=== PATIENT | female | born 1985 | race American Indian/Alaskan Native ===

== ENCOUNTER 2021-05-30 23:26 | Emergency (ER) | payer MEDICARE ==
--- NOTE | 2021-05-31 02:31 | Emergency Department Report ---
ED Eye Problem HPI - General Chief complaint: Eye Problems Stated complaint: LEFT EYE IRRITATION Source: patient Mode of arrival: Ambulatory Limitations: No Limitations - History of Present Illness Initial comments: Patient is a 35-year-old -[place] female with past medical history of morbid obesity who presents to the ED with complaint of acute onset persistent bilateral eye pain with thick purulent discharge, matting and mild conjunctival erythema for the last 2 days. Patient states that the pain is sharp, constant and burning. Patient states that no one else at home or at work has had similar symptoms. Patient denies traumatic injury, headache, fever, chills, vision loss, nasal and sinus congestion, back pain, sore throat, neck pain, dizziness, or cough. MD chief complaint: eye pain (Bilateral eye pain), eye redness (Bilateral eye redness with discharge), vision change (Bilateral eye discharge) -: Sudden, days(s) (2) Onset Description: sudden Location: both eyes Place: home If Injury: none Eye Symptoms: redness, pain, discharge Severity: severe Severity scale (0 -10): 7 If Pain, Quality: burning, aching Consistency: constant Context: recent uri Associated Symptoms: none. denies: headache, neck pain, nausea/vomiting, cough, rhinorrhea, fever, shortness of breath Treatments Prior to Arrival: none - Related Data Previous Rx's Medication Instructions Recorded Last Taken Type Ibuprofen [Motrin] 800 mg PO Q8HR PRN #24 tablet 05/31/21 Unknown Rx Tobramycin 0.3% [Tobrex] 1 drop OP Q4HR #5 ml 05/31/21 Unknown Rx Allergies Allergy/AdvReac Type Severity Reaction Status Date / Time No Known Allergies Allergy Unverified 05/30/21 23:47 ED Review of Systems ROS: Stated complaint: LEFT EYE IRRITATION Other details as noted in HPI Constitutional: denies: chills, fever Eyes: eye pain (Bilateral eye pain), eye discharge (Bilateral purulent discharge), other (Bilateral mild conjunctival erythema). denies: vision change ENT: congestion. denies: ear pain, throat pain Respiratory: denies: cough, shortness of breath, wheezing Cardiovascular: denies: chest pain, palpitations Endocrine: no symptoms reported Gastrointestinal: denies: abdominal pain, nausea, vomiting, diarrhea Genitourinary: denies: urgency, dysuria, discharge Musculoskeletal: denies: back pain, joint swelling, arthralgia Skin: denies: rash, lesions Neurological: denies: headache, weakness, paresthesias Psychiatric: denies: anxiety, depression Hematological/Lymphatic: denies: easy bleeding, easy bruising ED Past Medical Hx - Past Medical History Previous Medical History?: No - Surgical History Past Surgical History?: No - Social History Smoking Status: Never Smoker Substance Use Type: None - Medications Home Medications: Home Medications Medication Instructions Recorded Confirmed Last Taken Type Ibuprofen [Motrin] 800 mg PO Q8HR PRN #24 tablet 05/31/21 Unknown Rx Tobramycin 0.3% [Tobrex] 1 drop OP Q4HR #5 ml 05/31/21 Unknown Rx ED Physical Exam - General Limitations: No Limitations General appearance: alert, in no apparent distress - Head Head exam: Present: atraumatic, normocephalic, normal inspection - Eye Eye exam: Present: normal appearance, PERRL, EOMI, other (Mild bilateral erythematous conjunctiva with matting and purulent discharge) Pupils: Present: normal accommodation - ENT ENT exam: Present: normal exam, normal orophraynx, mucous membranes moist, TM's normal bilaterally, normal external ear exam - Neck Neck exam: Present: normal inspection, full ROM - Respiratory Respiratory exam: Present: normal lung sounds bilaterally. Absent: respiratory distress, wheezes, rales, rhonchi, chest wall tenderness, accessory muscle use, decreased breath sounds - Cardiovascular Cardiovascular Exam: Present: regular rate, normal rhythm, normal heart sounds. Absent: systolic murmur, diastolic murmur, rubs, gallop - GI/Abdominal GI/Abdominal exam: Present: soft, normal bowel sounds. Absent: tenderness, guarding, rebound, hyperactive bowel sounds, hypoactive bowel sounds, organomegaly - Extremities Exam Extremities exam: Present: normal inspection, full ROM, normal capillary refill - Back Exam Back exam: Present: normal inspection, full ROM. Absent: tenderness, CVA tenderness (R), CVA tenderness (L), muscle spasm, paraspinal tenderness, vertebral tenderness - Neurological Exam Neurological exam: Present: alert, oriented X3, CN II-XII intact, normal gait, reflexes normal - Psychiatric Psychiatric exam: Present: normal affect, normal mood - Skin Skin exam: Present: warm, dry, intact, normal color. Absent: rash ED Course Vital Signs 05/30/21 23:50 Temperature 98.6 F Pulse Rate 93 H Respiratory 20 Rate Blood Pressure 126/78 O2 Sat by Pulse 100 Oximetry ED Medical Decision Making - Medical Decision Making This is a 35-year-old -[place] female with past medical history of morbid obesity who presents to the ED with complaint of acute onset persistent bilateral eye pain with thick purulent discharge, matting and mild conjunctival erythema for the last 2 days. Patient states that the pain is sharp, constant and burning. Patient states that no one else at home or at work has had similar symptoms. In the ED, patient is alert and oriented x3 and is not in any distress. Based on the history and physical exam findings, patient symptoms are likely due to acute conjunctivitis. Patient was therefore discharged home on medications and advised to follow-up with her primary care physician in 5 to 7 days for reevaluation. Patient was also advised to maintain a high level of hygiene in the house to prevent transmission to other family members. Patient was advised return to the ED immediately if symptoms get worse. - Differential Diagnosis Bacterial conjunctivitis; viral conjunctivitis; keratitis Critical care attestation.: If time is entered above; I have spent that time in minutes in the direct care of this critically ill patient, excluding procedure time. ED Disposition Clinical Impression: Acute conjunctivitis of both eyes Qualifiers: Acute conjunctivitis type: unspecified Qualified Code(s): H10.33 - Unspecified acute conjunctivitis, bilateral Disposition: - TO HOME OR SELFCARE Is pt being admited?: No Does the pt Need Aspirin: No Condition: Stable Instructions: Bacterial Conjunctivitis, Adult, [id number] Additional Instructions: Maintain strict hygiene to prevent further transmission to other people at home. Apply the medication to the affected eyes as advised, take pain medication as needed by mouth with food, drink plenty of fluids and follow-up with your primary care physician in 5 to 7 days for reevaluation. Return to the ED immediately if symptoms get worse. Prescriptions: Ibuprofen [Motrin] 800 mg PO Q8HR PRN #24 tablet PRN Reason: Pain , Severe (7-10) Tobramycin 0.3% [Tobrex] 1 drop OP Q4HR #5 ml Referrals: [facility] [Provider Group] - 3-5 Days Forms: Work/School Release Form(ED) Time of Disposition: 02:36 Print Language: [id number]
== END 2021-05-31 03:00 | disposition home or self-care (01) ==
LOC: ED 23:26
CPT/HCPCS: 99282